=== PATIENT | female | born 1970 | race Caucasian/White ===

== ENCOUNTER 2024-04-07 08:34 | Day surgery (SDC) | payer OTHER ==
[~2024-04-07 08:34] MED LIST: Lactated Ringers 1,000 ML IV SCH
[2024-04-07] MEDS: Lactated Ringers 1,000 ML IV SCH (08:55)
[2024-04-07] MEDS ORDERED: Propofol 200 MG/20 ML SDV ONE (09:53)
[2024-04-07] MEDS ORDERED: fentaNYL 100 MCG/2 ML SDV ONE (09:53)
== END 2024-04-07 11:55 | disposition home or self-care (01) ==
LOC: VM.SDS 08:34
PROVIDERS: ATTEND Family Medicine
DX: Z12.11 Encounter for screening for malignant neoplasm of colon (principal); D12.6 Benign neoplasm of colon, unspecified; K62.1 Rectal polyp; K57.30 Diverticulosis of large intestine without perforation or abscess without bleeding; E78.2 Mixed hyperlipidemia; Z80.0 Family history of malignant neoplasm of digestive organs; Z86.0100 Personal history of colon polyps, unspecified; Z87.891 Personal history of nicotine dependence
CPT/HCPCS: 00811; J2704; J3010; J7120